=== PATIENT | female | born 1975 | race Caucasian/White ===

== ENCOUNTER → 2018-05-15 | Outpatient (CLI) | payer OTHER | LOC: FIMAGING 11:09 ==

== ENCOUNTER 2018-07-14 05:53 | Day surgery (SDC) | payer OTHER ==
--- NOTE | 2018-06-23 17:37 | GHP ---
[f rep st] PREOP HISTORY AND PHYSICAL DATE OF ADMISSION: 07/14/2018 PREOPERATIVE DIAGNOSIS: Menorrhagia. SURGERY TO BE PERFORMED: Hysteroscopy, dilation and curettage, Amelia endometrial ablation. HISTORY OF PRESENT ILLNESS: The patient is a 42-year-old, 3, para 2-0-1-2, with a longstandi ng history of increasing menstrual periods which are becoming problematic over the last several years . She has significant cramping lower, back pain, and heavy periods, as well as emotional disturbance s and PMS. She had a Mirena IUD that was placed in May of 2013 and initially it helped decrease th e flow of her periods, but she was continuing to have increasing bloating, weight gain, back pain, an d she wished to have her Mirena removed in February. So she had that removed in February of 2018. F ollowed up in May. She was feeling better overall, but increasing periods, dysmenorrhea, and we di scussed medical management with oral contraceptive pills or Lysteda versus surgical management with a hysteroscopy, D and C, and ablation, or a hysterectomy. The patient wishes to have a hysteroscopy, D and C, and ablation. She is in a committed relationship and her boyfriend has committed to having a vasectomy for contraception. She declines laparoscopic tubal at the time of procedure. PAST MEDICAL HISTORY: The patient has no significant past medical problems except history of endomet riosis. She had a diagnostic laparoscopy in 1998, but no other significant medical problems. ALLERGIES: Sulfa, it causes hives. PAST SURGICAL HISTORY: Only her diagnostic laparoscopy in 1998. PAST OBSTETRICAL HISTORY: In July of 2006, she had a viable female 7 pounds, vaginal delivery, no com plications. In April of 2008, she had a spontaneous . In February of 2009, she had a via ble male 7 pounds, no complications. She did have gestational diabetes with that baby but then was d one. SOCIAL HISTORY: She is newly . She has been in a new relationship for approximately a year. 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 She denies smoking. Alcohol 1-3 times a week. No marijuana or any drugs. She does use CBD oil occasionally for anxiety and caffeine is only green tea. She regularly exercises. FAMILY HISTORY: Significant for a mother with type 2 diabetes. Paternal grandmother with breast can cer in her 60s and that is all. OBJECTIVE: VITAL SIGNS: Today, weight is 136 pounds. Blood pressure is 98/66. GENERAL: She is a well-developed, well-nourished, thin, white female, in no acute distress. LUNGS: Clear to auscultat ion bilaterally. HEART: Regular rate and rhythm. No murmur. ABDOMEN: Soft, nontender, nondistend ed. Normal bowel sounds. PELVIC: Normal external genitalia. Normal parous cervix. Uterus is retr overted, retroflexed, and tender to palpation. She is currently having her menstrual cycle. Endomet rial biopsy was performed without difficulty. ASSESSMENT AND PLAN: A 42-year-old, 3, para 2-0-1-2, with menorrhagia, dysmenorrhea, history of endometriosis, for hysteroscopy, D and C, Amelia endometrial ablation. She was consented for th e procedure. She understood the risks and benefits. The risks including bleeding, infection, damage to the uterus including possible risk of perforation, damage to other organs if perforation was to o ccur, need for additional procedures, and incomplete treatment of the bleeding. She understood these risks and benefits, and agreed to proceed. /[id number]/MODL
[2018-07-14] MEDS ORDERED: LR 1,000 ML IV ONE (06:11)
[2018-07-14] MEDS ORDERED: LIDOCAINE 1% 2 ML INJ ID PRN (06:11)
[2018-07-14] MEDS ORDERED: SILVER NITRATE APPLICATOR 1 APPL TP ONE (06:18)
[2018-07-14] MEDS ORDERED: MIDAZOLAM 2 MG/2 ML VIAL IVP ONE (06:55)
[2018-07-14] MEDS ORDERED: PROMETHAZINE HCL 25 MG/ML INJ IVP PRN (06:57)
[2018-07-14] MEDS ORDERED: fentaNYL 100 MCG/2 ML INJ IVP PRN (06:57)
[2018-07-14] MEDS ORDERED: LR 500 ML IV PRN (06:57)
[2018-07-14] MEDS ORDERED: ACETAMINOPHEN 500 MG TAB PO PRN (06:57)
[2018-07-14] MEDS ORDERED: HYDROCODONE/APAP 5/325 TAB PO PRN (06:57)
[2018-07-14] MEDS ORDERED: NALOXONE HCL 0.4 MG/ML INJ IVP PRN (06:57)
[2018-07-14] MEDS ORDERED: ONDANSETRON 4 MG/2 ML VIAL IVP PRN (06:57)
[2018-07-14] MEDS ORDERED: MEPERIDINE 25 MG/0.5 ML AMP IVP PRN (06:57)
--- NOTE | 2018-07-14 06:57 | PDANEPAE ---
ANE Past Medical History - Cardiovascular History Hx Hypertension: No Hx Arrhythmias: No Hx Chest Pain: No Hx Coronary Artery / Peripheral Vascular Disease: No Hx CHF / Valvular Disease: No Hx Palpitations: No - Pulmonary History Hx COPD: No Hx Asthma/Reactive Airway Disease: No Hx Recent Upper Respiratory Infection: No Hx Oxygen in Use at Home: No Hx Sleep Apnea: No Sleep Apnea Screening Result - Last Documented: Negative - Neurologic History Hx Cerebrovascular Accident: No Hx Seizures: No Hx Dementia: No - Endocrine History Hx Diabetes: Yes Obesity: no Endocrine History Comment: hyperglycemic, pre diabetic, exercise and diet controlled - Renal History Hx Renal Disorders: No - Liver History Hx Hepatic Disorders: No - Neurological & Psychiatric Hx Hx Neurological and Psychiatric Disorders: No - Cancer History Hx Cancer: No - Congenital Disorder History Hx Congenital Disorders: No - GI History GERD: no Hx Gastrointestinal Disorders: No - Chronic Pain History Chronic Pain: No - Surgical History Prior Surgeries: diagnostic laparoscopy 1998, wisdom teeth with general ANE Review of Systems Review of Systems: - Exercise capacity METS (RN): 6 METS ANE Patient History - Allergies Allergies/Adverse Reactions: Sulfa (Sulfonamide Antibiotics) Allergy (Verified 07/06/18 10:24) Hives - Home Medications Home medications: home medication list seen and reviewed Home Medications: NK [No Known Home Meds] 07/06/18 [Last Taken Unknown] - NPO status NPO Since - Liquids (Date): 07/14/18 NPO Since - Liquids (Time): 04:30 NPO Since - Solids (Date): 07/13/18 NPO Since - Solids (Time): 18:30 - Anes Hx Anes Hx: post operative nausea, slow to awaken from anesthesia - Smoking Hx Smoking Status: Never smoked - Family Anes Hx Family Hx Anesthesia Complications: none ANE Labs/Vital Signs - Vital Signs Blood Pressure: 106/69 Heart Rate: 82 Respiratory Rate: 18 O2 Sat (%): 98 Height: 163.83 cm Weight: 58.967 kg ANE Physical Exam - Airway Neck exam: FROM Mallampati Score: Class 1 Mouth exam: normal dental/mouth exam - Pulmonary Pulmonary: no respiratory distress, no rales or rhonchi, clear to auscultation - Cardiovascular Cardiovascular: regular rate and rhythym, no murmur, rub, or gallop - ASA Status ASA Status: I ANE Anesthesia Plan Anesthesia Plan: GA w LMA
[2018-07-14] MEDS ORDERED: DOXYCYCLINE INJ 100 MG in NS 250 ML IV SCH (07:00)
[2018-07-14] MEDS ORDERED: fentaNYL 100 MCG/2 ML INJ ONE (07:10)
[2018-07-14] MEDS ORDERED: PROPOFOL/EMULSION 500 MG/50 ML BOTTLE IV ONE (07:10)
[2018-07-14] MEDS ORDERED: DEXAMETHASONE 4 MG/ML VIAL ONE ×2 (07:11)
[2018-07-14] MEDS ORDERED: ONDANSETRON 4 MG/2 ML VIAL ONE ×2 (07:11)
[2018-07-14] MEDS ORDERED: KETOROLAC 30 MG/1 ML SDV ONE (07:11)
--- NOTE | 2018-07-14 07:14 | PDHPUP ---
History & Physical Update H&P update statement: This history and physical update is based on an assessment of the patient which was completed after admission or registration (within 24 hours), but prior to the surgery/procedure. H&P update: H&P reviewed & patient examined, no change in patient's condition since H&P completed
[2018-07-14] MEDS ORDERED: oxyCODONE IR 5 MG TAB PO PRN (08:15)
[2018-07-14] MEDS ORDERED: IBUPROFEN 600 MG TAB PO PRN (08:15)
--- NOTE | 2018-07-14 08:15 | POSTOPPROG ---
Post Op Note Date of Operation: 07/14/18 Surgeon: Huong Cervantes Anesthesiologist: Dr Jluis Alcantara Anesthesia: GET(General Endotracheal) (with LMA) Pre-op Diagnosis: menorrhagia, endometrial polyp Post-op Diagnosis: same Procedure: Hysteroscopy dilation and curretage, endometrial ablation Findings: uterine cavity with polyps Inf/Abcess present in the surg proc area at time of surgery?: No Depth: Organ Space EBL: Minimal Total fluids administered: 500 Complications: none Bowel Protocol: No Clean Closure Performed: N/A Specimen(s): endometrial polyps and endometrial curettings
--- NOTE | 2018-07-14 08:26 | POSTANESTH ---
Post Anesthetic Evaluation Cardiovascular Status: Normal, Stable, Similar to Pre-Op Cond Respiratory Status: Normal, Stable, Similar to Pre-op Cond. Level of Consciousness/Mental Status: Can Participate in Eval, Alert and Oriented Pain Control: Adequate, Prn Tx Ordered Nausea/Vomiting Control: Adequate, Prn Tx Ordered Complications Possibly Related to Anesthesia: None Noted
--- NOTE | 2018-07-14 08:53 | GOP ---
[f rep st] OPERATIVE REPORT DATE OF OPERATION: SURGEON: Huong Cervantes MD ANESTHESIA: General anesthesia with an LMA. ANESTHESIOLOGIST: Jluis Sutherland MD. PREOPERATIVE DIAGNOSIS: Menorrhagia and endometrial polyp. POSTOPERATIVE DIAGNOSIS: Menorrhagia and endometrial polyp. PROCEDURE PERFORMED: Hysteroscopy, dilation and curettage, polypectomy, and Amelia endometrial abla tion. FINDINGS: SPECIMENS: Pathologic specimen will be endometrial curettings and endometrial polyp. ESTIMATED BLOOD LOSS: Less than 10 cc. INDICATIONS: The patient is a 42-year-old 3, para 2-0-1-2, with a longstanding history of in creasing menstrual periods beginning to become problematic, significant cramping, lower back pain, an d heavy periods. She had a Mirena IUD that was placed in May of 2013. It initially helped with fl ow of the periods, but she continued to have significant menstrual cycles and had it removed in 2017. As she has had it removed, she had increasing flow, causing her to miss work and get in the way of her life. The patient wished to have definitive management for her periods. We offered medical management with oral contraceptive pills or Lysteda versus surgical management with a hystero scopy, D and C, ablation or hysterectomy. The patient wished to have a hysteroscopy, D and C, and ab lation. She is currently in a committed relationship, and her partner has agreed to have a vasectomy . She declined a laparoscopic salpingectomy at the time of this procedure. She was consented for th e procedure. She understood the risks and benefits, the risks including bleeding, infection, damage to the uterus including possible risk of perforation, damage to other organs if perforation were to o ccur, need for additional procedures, and incomplete treatment of her bleeding. She understood these risks and benefits, and agreed to proceed. DESCRIPTION OF PROCEDURE: Patient was taken to the operating room where she was placed under general anesthesia without difficulty. She was prepped and draped in the dorsal lithotomy position, and she had previously drained her bladder before going into the operating room. After a WHO time-out was p erformed, an open-sided speculum was placed in the vagina, and a Cantor tenaculum was used to grasp t he anterior lip of the cervix. The uterus sounded to 10 cm, and the cervix sounded to approximately 3 cm. The cervix was then dilated with Hassan dilators to a #6.5. The TruClear hysteroscope was gent ly advanced from the cervix to the fundus, and good visualization of the endometrial cavity was perfo rmed. There was evidence of redundant tissue and endometrial polyps. Both tubal ostia were seen. A normal open uterine cavity was also appreciated. The morcellator was gently advanced through the op erative channel of the hysteroscope. A window lock was performed and morcellation took place over th e entire endometrial cavity with care to remove the polyps and all of the redundant endometrial tissu e until the cavity was opened and cleaned, and the ostia were clearly visualized. The hysteroscope w as then removed. The Amelia was inserted into the uterine cavity at the fundus, and the array was o pened. The cavity assessment was passed without difficulty, and endometrial ablation took place over 120 seconds. The patient tolerated well and the device worked perfectly. The device was then remov ed. There was a normal sary seen on the array. The hysteroscope was then re-introduced into the [place], and a normal sary of the endometrial cavity was seen and no evidence of injury or any issues. T he hysteroscope was removed. The tenaculum was removed. There was no bleeding at the level of the c ervix. Speculum was removed. Patient tolerated the procedure well. Sponge, lap, needle, and instru ment counts were correct x2. Patient went to the recovery room in good condition. FLUID REPLACEMENT: 500 cc. URINE OUTPUT: Not measured. /[id number]/MODL
[2018-07-14 09:29] VITALS: BP 100/61
== END 2018-07-14 10:03 | disposition home or self-care (01) ==
LOC: FSGY 05:53
PROVIDERS: ATTEND Obstetrics & Gynecology
PROC: 0UDB8ZZ Extraction of Endometrium, Via Natural or Artificial Opening Endoscopic (ICD-10-PCS; principal; 2018-07-14 07:15)
PROC: 0UB98ZX Excision of Uterus, Via Natural or Artificial Opening Endoscopic, Diagnostic (ICD-10-PCS; principal; 2018-07-14 07:15)
DX: N92.0 Excessive and frequent menstruation with regular cycle (principal); N84.0 Polyp of corpus uteri
CPT/HCPCS: 58563; C1782; J1100; J1885; J2250; J2405; J2704; J3010